=== PATIENT | female | born 1980 | race Caucasian/White ===

== ENCOUNTER 2017-05-26 15:26 | Emergency (ER) | payer OTHER ==
[2017-05-26 15:52] VITALS: RESP 16; O2SAT 98
[2017-05-26 17:25] VITALS: BP 119/78; PULSE 94; TEMP 97.4
== END 2017-05-26 17:10 | disposition home or self-care (01) | DRG 781 ==
LOC: ED 15:26
DX: O26.893 Other specified pregnancy related conditions, third trimester (principal); W50.0XXA Accidental hit or strike by another person, initial encounter; Y93.F9 Activity, other caregiving; Y92.238 Other place in hospital as the place of occurrence of the external cause; Y99.0 Civilian activity done for income or pay
CPT/HCPCS: 59025; 99282